=== PATIENT | female | born 1960 | race Hispanic/Latino ===

== ENCOUNTER 2021-06-17 16:20 | Emergency (ER) | payer SELFPAY ==
--- NOTE | 2021-06-17 17:03 | Emergency Department Report ---
HPI - General Chief Complaint: Cardiac Arrest/CPR Time Seen by Provider: 06/17/21 16:52 - HPI HPI: 60-year-old female known history of DM2 brought in by EMS in cardiac arrest. According to the EMS report, the patient complained of shortness of breath today and then collapsed. Before EMS arrived, the patient apparently became unresponsive and pulseless. EMS states they found the patient down on the ground and the family was outside. They estimate that she was down for approximately 15 minutes with no CPR. Her initial rhythm was asystole. CPR was initiated and the patient was administered cardiac epi per ACLS protocol. Fingerstick blood glucose read "high". She was administered Narcan and bicarbonate, as well as IVFs. She was intubated in the field with confirmation by end-tidal CO2. While in route the patient's rhythm changed to V. fib and she was defibrillated 1 time. However, she did not regain a pulse and the rhythm changed back to asystole. CPR had been in progress for approximately 30 minutes prior to arrival. Further details of the HPI are limited due to the patient's current clinical condition. ED Past Medical Hx - Past Medical History Previous Medical History?: Yes Hx Diabetes: Yes ED Review of Systems ROS: Stated complaint: CARDIAC ARREST Other details as noted in HPI Comment: Unobtainable due to pts medical conditions Physical Exam - Physical Exam Physical Exam: GENERAL: Pale appearing obese female unresponsive and obtunded. HEAD: Normocephalic. No obvious signs of trauma. ENT: Endotracheal tube in place with appropriate condensation. EYES: Pupils are fixed and dilated bilaterally. NECK: Supple. Full ROM is intact. Trachea is midline. LUNGS: Bilateral breath sounds with bag valve ventilation. CARDIOVASCULAR: Pulseless. Chest compressions are being performed VASCULAR: No pulse. ABDOMEN: Abdomen is soft and nondistended. SKIN: Skin pale, cool, and dry NEURO: Unresponsive MUSCULOSKELETAL: No obvious deformities. - IO Right Tibia Consent Obtained: emergent situation IO Instrument Used to Penetrate the Cortex: battery powered IO drill Patient Tolerated Procedure: no complications Complications: none ED Medical Decision Making - Medical Decision Making 60-year-old female history of diabetes brought in by EMS in cardiac arrest. The patient apparently complained of shortness of breath and then collapsed. She was unresponsive and pulseless but CPR was not performed for 15 minutes. When EMS arrived, they initiated CPR and gave cardiac epi per ACLS protocol. Fingerstick blood glucose showed "high". She was intubated in the field with confirmation by end-tidal CO2. Upon arrival to our emergency department, the patient was pulseless and with fixed and dilated pupils bilaterally. CPR was continued and the patient was administered cardiac epi, bicarbonate, and calcium. Shortly thereafter ROSC was achieved. The monitor showed a junctional rhythm which then changed to PEA. CPR was initiated again and further resuscitative medications were given per ACLS protocol. Unfortunately, the patient did not regain a pulse and became mottled in appearance. Bedside ultrasound of the heart revealed no cardiac activity. Time of was called at 1630. Critical care attestation.: If time is entered above; I have spent that time in minutes in the direct care of this critically ill patient, excluding procedure time. ED Disposition Clinical Impression: Cardiac arrest Disposition: 20 Is pt being admited?: No
[2021-06-17] MEDS ORDERED: SODIUM BICARB 8.4% 50 MEQ/50 ML SYRINGE IV ONE (18:00)
[2021-06-17] MEDS ORDERED: EPINEPHrine 1 MG/10 ML SYRINGE ONE (18:00)
[2021-06-17] MEDS ORDERED: CALCIUM CHLORIDE 1,000 MG/10 ML SYRINGE IV ONE (18:00)
== END 2021-06-17 17:00 ==
LOC: ED 16:20
DX: I46.9 Cardiac arrest, cause unspecified (principal)
CPT/HCPCS: 36680; 92950; 99285; J0171